=== PATIENT | female | born 1980 | race Caucasian/White ===

== ENCOUNTER 2017-01-30 04:47 | Day surgery (SDC) | payer BC ==
[~2017-01-30 04:47] MED LIST: CELEXA20 M2 PO; CULTURELLE1 EAC1 PO; EQL FISH OIL 1,1 CAP PO; GLUCOPHAGE1000 M1 PO; IBUPROFEN200 M2 PO; PRENATAL1 TAB PO; SYNTHROID25 MCG PO; TRICOR145 M2 PO; TYLENOL325 M2 PO; VIBRAMYCIN100 M1 PO; VITAMIN D31000 UNI3 PO
[2017-01-30] MEDS ORDERED: PERCOCET 5-3251 EACH PO (09:51)
== END 2017-01-31 12:25 ==
LOC: WSU 04:47 → SHSA 04:48 → ORW 06:51 → PACU 08:12 → OBGF 09:45
PROC: 0UT94ZZ Resection of Uterus, Percutaneous Endoscopic Approach (ICD-10-PCS; principal; 2017-01-30)
PROC: 0UTC4ZZ Resection of Cervix, Percutaneous Endoscopic Approach (ICD-10-PCS; 2017-01-30)
PROC: 0UB74ZZ Excision of Bilateral Fallopian Tubes, Percutaneous Endoscopic Approach (ICD-10-PCS; 2017-01-30)
DX: D25.1 Intramural leiomyoma of uterus (principal); N80.0 Endometriosis of uterus; N83.8 Other noninflammatory disorders of ovary, fallopian tube and broad ligament; Z98.51 Tubal ligation status; E11.9 Type 2 diabetes mellitus without complications; Z88.8 Allergy status to other drugs, medicaments and biological substances; Z79.899 Other long term (current) drug therapy; Z98.890 Other specified postprocedural states
CPT/HCPCS: J0690; J3010; J7030; J7121